=== PATIENT | female | born 1970 | race Hispanic/Latino ===

== ENCOUNTER 2024-03-17 18:38 | Emergency (ER) | payer SELFPAY ==
[~2024-03-17] VITALS: Ht 157.5 cm; Wt 88.5 kg
[2024-03-17 19:30] VITALS: PULSE 64; RESP 17; TEMP 98
[2024-03-17] MEDS ORDERED: ACYCLOVIR200 MG PO (22:04)
[2024-03-17] MEDS ORDERED: PREDNISONE20 MG PO (22:04)
[2024-03-17 23:20] VITALS: BP 181/87; PULSE 70; RESP 16; TEMP 97.9; O2SAT 100
== END 2024-03-17 22:05 | disposition home or self-care (01) ==
LOC: ER 18:47
DX: G51.0 Bell's palsy (principal); E66.9 Obesity, unspecified
CPT/HCPCS: 70450; 99283